=== PATIENT | female | born 1995 | race Caucasian/White ===

== ENCOUNTER 2017-08-23 20:52 | Emergency (ER) | payer OTHER ==
[2017-08-23] MEDS ORDERED: Amoxicillin/Clavulanate TAB* 875 MG PO ONE (21:19)
[2017-08-23] MEDS: Ibuprofen TAB* 400 MG PO ONE ×2 (21:26→21:28)
[2017-08-23 21:34] VITALS: BP 122/68
--- NOTE | 2017-08-23 21:34 | ED ---
Raul Daniel Natalie, scribed for Luis Machado MD on 08/23/17 at 2127 . Throat Pain/Nasal Congestion - HPI Summary HPI Summary: The patient is a 22 y/o F presenting to [facility] c/o pain in left ear starting today [place] The pt states that she jumped and immediately felt a sharp pain in her ear. She thought there was just water in her ear, but it continued to be painful. She also developed a headache. She has recently flown from [place] to [place] to [place] and back to [place] on 08/21/17. Nonsmoker. No medications. No allergies. - History of Current Complaint Chief Complaint: EDEarPain Time Seen by Provider: 08/23/17 21:09 Hx Obtained From: Patient Onset/Duration: Sudden Onset, Still Present Severity: Mild Cough: None - Allergies/Home Medications Allergies/Adverse Reactions: Allergies Allergy/AdvReac Type Severity Reaction Status Date / Time No Known Allergies Allergy Verified 08/23/17 20:55 PMH/Surg Hx/FS Hx/Imm Hx Endocrine/Hematology History: Denies: Hx Diabetes Cardiovascular History: Denies: Hx Congenital Heart Disease, Hx Hypertension Respiratory History: Denies: Hx Asthma Sensory History: Denies: Hx Legally Blind Opthamlomology History: Denies: Hx Legally Blind EENT History: Denies: Hx Deafness Infectious Disease History: No Infectious Disease History: Denies: Traveled Outside the in Last 30 Days - Family History Known Family History: Negative: Blood Disorder Review of Systems Positive: Ear Ache - sharp pain left ear Positive: Headache All Other Systems Reviewed And Are Negative: Yes Physical Exam - Summary Physical Exam Summary: Appearance: Well appearing, no pain distress Skin: warm, dry, reflects adequate perfusion Head/face: normal Eyes: EOMI, CLARENCE ENT: tiny eccymosis in interior of TM with bubbles Neck: supple, non-tender Respiratory: CTA, breath sounds present Cardiovascular: RRR, pulses symmetrical Abdomen: non-tender, soft Bowel Sounds: present Musculoskeletal: normal, strength/ROM intact Neuro: normal, sensory motor intact, A&Ox3 Triage Information Reviewed: Yes Vital Signs On Initial Exam: Initial Vitals Temp Pulse Resp BP Pulse Ox 98.4 F 93 16 121/75 98 08/23/17 20:55 08/23/17 20:55 08/23/17 20:55 08/23/17 20:55 08/23/17 20:55 Vital Signs Reviewed: Yes Diagnostics - Vital Signs Vital Signs Temp Pulse Resp BP Pulse Ox 08/23/17 20:55 98.4 F 93 16 121/75 98 - Laboratory Lab Statement: Any lab studies that have been ordered have been reviewed, and results considered in the medical decision making process. Re-Evaluation - Re-Evaluation First Eval Re-Evaluation Time: 21:20 Change: Improved - I spoke with the pt about exam. She will be discharged home. EENT Course/Dx - Course Course Of Treatment: Likely pressure barotitis versus forcible water entering the eustachian tube. Tiny bubbles seen behind the eardrum without significant erythema. Eardrum is intact. Augmentin, ibuprofen here. Oral Sudafed, Afrin at home plus the antibiotic and ibuprofen. - Diagnoses Provider Diagnoses: Barotitis media Discharge - Sign-Out/Discharge Documenting (check all that apply): Discharge/Admit/Transfer - Pt will be discharged home. - Discharge Plan Condition: Good Disposition: HOME Prescriptions: Amoxicillin/Clavulanate TAB* [Augmentin TAB 875*] 875 mg PO BID #14 tab Patient Education Materials: Barotitis Media (ED) Referrals: [facility] [Provider Group] Additional Instructions: Ibuprofen as needed. Afrin for the next 2 days. Return with fever, uncontrolled pain, worse or other concerns. [facility]up with [facility]. - Billing Disposition and Condition Condition: GOOD Disposition: Home The documentation as recorded by the Raul schultz Natalie accurately reflects the service I personally performed and the decisions made by , Luis Machado MD.
== END 2017-08-23 21:33 | disposition home or self-care (01) ==
LOC: ED 20:52
DX: T70.0XXA Otitic barotrauma, initial encounter (principal); W16.812A Jumping or diving into other water striking water surface causing other injury, initial encounter; Y92.89 Other specified places as the place of occurrence of the external cause
CPT/HCPCS: 99282; A9270-GY

== ENCOUNTER 2017-09-26 14:12 | Emergency (ER) | payer OTHER ==
[2017-09-26 14:22] VITALS: BP 102/54
--- NOTE | 2017-09-26 14:54 | ED ---
Skin Complaint - HPI Summary HPI Summary: This is scradria Phillipsin documenting for attending Dr. Elizabeth Corrales MD. A 22 y/o female presents to [facility] c/o right index finger swelling and redness due to ingrown nail. She reports that her symptoms have been present for the past two weeks, however, she noted that yesterday she woke up with swelling and redness on her right index finger. She noted that there is pain with palpation reaching 4/10 in severity. Pt denies any fever or chills. To alleviate symptoms , the patient put neosporin cream on the area. No known allergies. PMHx of tonsillectomy. - History of Current Complaint Chief Complaint: UCUpperExtremity Time Seen by Provider: 09/26/17 14:46 Stated Complaint: RED SWOLLEN FINGER TIP Hx Obtained From: Patient Hx Last Menstrual Period: 3 wks ago Onset/Duration: Started Days Ago - Yesterday, swelling and redness., Started Weeks Ago - Ingrown nail on right index finger, Still Present Timing: Constant, Lasting Days Onset Severity: Moderate Current Severity: Moderate Pain Intensity: 4 Pain Scale Used: 0-10 Numeric Skin Location: Hand, Other: - Right index finger Character: Swelling, Redness, Painful - 4/10 Aggravating Symptom(s): Nothing Alleviating Symptom(s): OTC Meds - Neosporin. Associated Signs & Symptoms: Negative - Allergy/Home Medications Allergies/Adverse Reactions: Allergies Allergy/AdvReac Type Severity Reaction Status Date / Time No Known Allergies Allergy Verified 09/26/17 14:22 PMH/Surg Hx/FS Hx/Imm Hx Cardiovascular History: Denies: Hx Congenital Heart Disease, Hx Hypertension Respiratory History: Denies: Hx Asthma Sensory History: Denies: Hx Legally Blind, Hx Deafness Opthamlomology History: Denies: Hx Legally Blind Infectious Disease History: No Infectious Disease History: Denies: Traveled Outside the [place] in Last 30 Days - Family History Known Family History: Negative: Blood Disorder - Social History Alcohol Use: Occasionally Substance Use Type: Reports: None Smoking Status (MU): Never Smoked Tobacco Review of Systems Constitutional: Negative Negative: Fever, Chills Eyes: Negative ENT: Negative Cardiovascular: Negative Respiratory: Negative Gastrointestinal: Negative Genitourinary: Negative Positive: Edema - right index finger Positive: Other - POSITIVE: Swelling and redness on right index finger Neurological: Negative Psychological: Normal All Other Systems Reviewed And Are Negative: Yes Physical Exam - Summary Physical Exam Summary: Appearance: Well-Appearing, No Pain Distress, Well-Nourished Eyes: conjunctiva clear, no discharge ENT: Hearing grossly normal, no muffled/hoarse voice. Neck: Normal, Supple Respiratory/Lung Sounds: Lungs clear, Normal breath sounds, No respiratory distress, No accessory muscle use Cardiovascular: RRR, No murmur Abdomen: Nontender, Soft, no guarding, not distended Bowel Sounds: Present Musculoskeletal: Normal Neurological: Alert, muscle tone normal Psychiatric:Normal, age appropriate behavior Skin: Redness and swelling of right index finger - medial aspect of nail. No fluctuant abscess, small puntum area with oozing clear drainage. No pus drainage. Triage Information Reviewed: Yes Vital Signs On Initial Exam: Initial Vitals Temp Pulse Resp BP Pulse Ox 98.7 F 72 18 102/54 99 09/26/17 14:18 09/26/17 14:18 09/26/17 14:18 09/26/17 14:18 09/26/17 14:18 Vital Signs Reviewed: Yes Appearance: Positive: Well-Appearing, No Pain Distress Diagnostics - Vital Signs Vital Signs Temp Pulse Resp BP Pulse Ox 09/26/17 14:18 98.7 F 72 18 102/54 99 - Laboratory Lab Statement: Any lab studies that have been ordered have been reviewed, and results considered in the medical decision making process. Course/Dx - Course Course Of Treatment: A 22 y/o female presents to ED c/o right index finger swelling and redness due to ingrown nail. According to the patient, the ingrown nail has been presents for the past two weeks, however, she noted that yesterday she woke up with swelling and redness on her right index finger. She noted that there is pain with palpation reaching 4/10 in severity. Pt denies any fever or chills. No laboratory scans were done. In the ED course, we reviewed her ongoing symptoms, Patient will be discharged with a diagnosis of paronychia. Patient is to start taking prescribed medication as prescribed. Additionally, patient is to apply topical antibiotic, however kept the finger dry. Patient is to follow up with PCP in 1 week. Pt is agreeable with this plan. - Diagnoses Provider Diagnoses: Paronychia Discharge - Sign-Out/Discharge Documenting (check all that apply): Patient Departure - DISCHARGE - Discharge Plan Condition: Stable Disposition: HOME Prescriptions: Cephalexin CAP* [Keflex CAP*] 500 mg PO TID 10 Days #30 cap Patient Education Materials: Paronychia (ED) Referrals: No Primary Care Phys,[facility] [Primary Care Provider] - Additional Instructions: Please start taking the medication as prescribed to the pharmacy . You can apply the topical antibiotic as well. Please keep the finger dry. Follow up with your primary care doctor in 1 week. Return to Urgent care / ER if symptoms get worse. - Billing Disposition and Condition Condition: STABLE Disposition: Home
== END 2017-09-26 15:04 | disposition home or self-care (01) ==
LOC: UCEAST 14:12
DX: L03.011 Cellulitis of right finger (principal)
CPT/HCPCS: 99212; G0463

== ENCOUNTER 2018-10-23 04:34 | Inpatient (IN) | payer OTHER ==
--- NOTE | 2018-10-23 04:59 | ED ---
Psychiatric Complaint - HPI Summary HPI Summary: LEVEL 5 CAVEAT secondary to being uncooperative. The patient is a 23 y/o F brought in by police to [facility] with a chief complaint of SI with plan for overdose. She states she used razors from her shower to self -inflict lacerations on the bilateral wrists. She also states that she tried to overdose but was unsuccessful. No PMHx. Nonsmoker, occasional EtOH, questionable substance use. - History Of Current Complaint Chief Complaint: EDMentalHealth Time Seen by Provider: 10/23/18 04:43 Hx Obtained From: Patient - patient doesn't give full history (uncooperative), Other: - police Hx From Patient Unobtainable Due To: Other - LEVEL 5 CAVEAT secondary to pt being uncooperative Hx Last Menstrual Period: 3 wks ago Onset/Duration: Still Present Severity Currently: Severe Has Suicidal: Reports: Thoughts, With A Plan - overdose - Allergies/Home Medications Allergies/Adverse Reactions: Allergies Allergy/AdvReac Type Severity Reaction Status Date / Time No Known Allergies Allergy Verified 10/23/18 08:46 PMH/Surg Hx/FS Hx/Imm Hx Endocrine/Hematology History: Denies: Hx Diabetes Cardiovascular History: Denies: Hx Congenital Heart Disease, Hx Hypertension Respiratory History: Denies: Hx Asthma Sensory History: Denies: Hx Legally Blind, Hx Deafness Opthamlomology History: Denies: Hx Legally Blind - Surgical History Surgical History: None Surgery Procedure, Year, and Place: none Infectious Disease History: No Infectious Disease History: Denies: Traveled Outside the US in Last 30 Days - Family History Known Family History: Negative: Blood Disorder - Social History Alcohol Use: Occasionally Substance Use Type: Reports: None Hx Tobacco Use: No Smoking Status (MU): Never Smoked Tobacco Review of Systems Positive: Other - lacerations on bilateral wrists Psychological: Other - SI with plan of overdose All Other Systems Reviewed And Are Negative: No - Comments Additional Review of Systems Comments: LEVEL 5 CAVEAT secondary to being uncooperative Physical Exam - Summary Physical Exam Summary: Appearance: Well-appearing, Well-nourished, lying in bed comfortable Skin: Superficial lacerations on the wrists without active bleeding and none of which require closure, Warm, dry, no obvious rash Eyes: sclera anicteric, no conjunctival pallor ENT: mucous membranes moist Neck: deferred Respiratory: No signs of respiratory distress Cardiovascular: Appears well perfused, pulses are nml Abdomen: deferred Musculoskeletal: Moving all 4 extremities without obvious discomfort Neurological: Awake and alert, mentation is normal, speech is fluent and appropriate Psychiatric: affect is normal, does not appear anxious or depressed Triage Information Reviewed: Yes Vital Signs On Initial Exam: Initial Vitals Temp Pulse Resp BP Pulse Ox 98.2 F 103 20 123/78 96 10/23/18 04:35 10/23/18 04:35 10/23/18 04:35 10/23/18 04:35 10/23/18 04:35 Vital Signs Reviewed: Yes Diagnostics - Vital Signs Vital Signs Temp Pulse Resp BP Pulse Ox 10/23/18 04:35 98.2 F 103 20 123/78 96 - Laboratory Result Diagrams: 10/23/18 05:24 10/23/18 05:24 Lab Statement: Any lab studies that have been ordered have been reviewed, and results considered in the medical decision making process. Re-Evaluation - Re-Evaluation First Eval Re-Evaluation Time: 04:45 Comment: Patient is medically cleared for MHE. Course/Dx - Course Course Of Treatment: LEVEL 5 CAVEAT secondary to being uncooperative. Patient is a 23 y/o F brought in by police with cc of SI with lacerations to both wrists using a razor and stated plane to overdose. Upon physical exam, the patient exhibits superficial lacerations on the wrists without active bleeding and none of which require closure. Blood work within normal limits. Toxicology report reveals serum alcohol of 145 but is otherwise negative. Patient is medically clear at 0445. The patient is a sign-out from Dr. Anibal Barboza MD, to Dr. Marie Arteaga MD, at change of shift at 0700 on 10/23/2018, pending MHE and disposition. - Differential Dx/Clinical Impression Provider Diagnosis: Suicidal ideation, Alcohol intoxication, Depressed, Self-cutting of wrist Discharge ED - Sign-Out/Discharge Documenting (check all that apply): Sign-Out Patient Signing out patient TO: Marie Arteaga - Patient is a sign-out to Dr. Marie Arteaga MD, at change of shift at 0700 on 10/23/2018, pending MHE and disposition. Patient Received Moderate/Deep Sedation with Procedure: No - Discharge Plan Condition: Stable Disposition: ADMITTED TO [facility] - Billing Disposition and Condition Condition: STABLE Disposition: Admitted to [facility] - Attestation Statements Document Initiated by Alberto: Yes Documenting Venkataibdariana: Sho Carter Provider For Whom Alberto is Documenting (Include Credential): Dr. Anibal Barboza MD Scribe Attestation: Sho Daniel scribed for Dr. Anibal Barboza MD on 10/23/18 at 2021. Scribe Documentation Reviewed: Yes Provider Attestation: The documentation as recorded by the Sho schultz accurately reflects the service I personally performed and the decisions made by me, Dr. Anibal Barboza MD Status of Scradria Document: Viewed
[2018-10-23 05:39] LABS: ABS Lymphocytes 2.7 10^3/ul (1.0-4.8); ABS Monocytes 0.4 10^3/ul (0-0.8); ABS Neutrophils 6.8 10^3/ul (1.5-7.7); Eosinophil % 0.4 %; Hematocrit 39 % (35-47); Hemoglobin 13.7 g/dL (12.0-16.0); Lymphocyte % 26.8 %; Mean Corpuscular HGB Conc 35 g/dL (31-36); Mean Corpuscular Hemoglobin 32 pg (27-31); Mean Corpuscular Volume 92 fL (80-97); Mean Platelet Volume 7.3 fL (7.4-10.4); Platelet Count 396 10^3/uL (150-450); Red Blood Count 4.27 10^6 /uL (3.70-4.87); Red Cell Distribution Width 13 % (10-15); White Blood Count 9.9 10^3/uL (3.5-10.8)
[2018-10-23 05:43] LABS: Urine Appearance Clear; Urine Bilirubin Negative (Negative); Urine Blood Negative (Negative); Urine Color Straw; Urine Glucose Negative (Negative); Urine Ketones Negative (Negative); Urine Nitrite Negative (Negative); Urine Protein Negative (Negative); Urine Specific Gravity 1.003 (1.010-1.030); Urine Urobilinogen Negative (Negative)
[2018-10-23 05:50] LABS: Urine Benzodiazepine Screen None Detected (None Detect); Urine Opiates Screen None Detected (None Detect)
[2018-10-23 05:51] LABS: ALT 23 U/L (7-52); AST 18 U/L (13-39); Albumin 4.8 g/dL (3.2-5.2); Albumin/Globulin Ratio 1.6 (1-3); Alkaline Phosphatase 93 U/L (34-104); Anion Gap 9 mmol/L (2-11); BUN/Creatinine Ratio 9.9 (8-20); Blood Urea Nitrogen 7 mg/dL (6-24); CO2 Carbon Dioxide 24 mmol/L (22-32); Calcium 9.6 mg/dL (8.6-10.3); Chloride 105 mmol/L (101-111); EGFR African American 125.7 (>60); EGFR Non-African American 103.9 (>60); Glucose 106 mg/dL (70-100); Potassium 4.1 mmol/L (3.5-5.0); Sodium 138 mmol/L (135-145); Total Protein 7.8 g/dL (6.4-8.9)
[2018-10-23 05:58] LABS: HCG Pregnancy < 0.60 mIU/mL
[2018-10-23 06:38] LABS: Acetaminophen < 15 mcg/mL; Alcohol 145 mg/dL (<10); Salicylate < 2.50 mg/dL (<30)
--- NOTE | 2018-10-23 07:08 | ED ---
Progress - Progress Note Progress Note: Pt is a sign out from Dr. Barboza at the 0700 shift change on 10/23/2018, pending MHE and disposition. The pt is awake now and states that she was "not doing well" when she first came to the ED. She was having SI without a plan last night and her friend, Sho, called the police to bring her to the ED. She mentions that she had been cutting her bilateral wrists. She also reports currently having a headache and that her cut lopez feel like they are burning. She notes that she consumes alcohol several times per week and was drinking [employer]. She has been hospitalized for psychiatric reasons before in [place], [place]. Her parents are currently going through divorce. Her LNMP was in July and she has no known allergies. She has FHx of bipolar disorder. Dr. Lewis was consulted @1250 and advises [place] [facility] Final Dx are alcohol intoxication, self-cutting of wrists, suicidal ideation, and unspecified depression. The pt will be admitted involuntarily to [facility] Appearance: Ill-appearing, moderate pain distress due to headache, well- nourished Skin: Warm, color reflects adequate perfusion, dry, 3 superficial lacerations on distal ventral surface of right forearm, 2 superficial lacerations on distal ventral surface of left forearm, superficial abrasion on medial lower right leg. Head: Normal Head/Face inspection, atraumatic Eyes: Conjunctiva clear ENT: Normal inspection Neck: Supple, no nodes, no JVD Respiratory: Lungs clear, normal breath sounds, no respiratory distress Cardio: RRR, No murmur, pulses normal, brisk capillary refill Abdomen: Soft, nontender Bowel sounds: Present Musculoskeletal: Strength Intact/ROM intact, no calf tenderness, no edema. Psychological: depressed affect, avoids eye contact Neuro: Alert, muscle tone normal, no focal deficit Re-Evaluation - Re-Evaluation First Eval Re-Evaluation Time: 04:45 Comment: Patient is medically cleared for MHE. Second Eval Re-Evaluation Time: 12:50 Comment: Signed involuntary paperwork for pt. Third Eval Re-Evaluation Time: 12:55 Comment: Pt is nauseous and holding vomit back. Will give Zofran. Course/Dx - Course Course Of Treatment: LEVEL 5 CAVEAT secondary to being uncooperative. Patient is a 23 y/o F brought in by police with cc of SI with lacerations to both wrists using a razor and stated plane to overdose. Upon physical exam, the patient exhibits superficial lacerations on the wrists without active bleeding and none of which require closure. Blood work within normal limits. Toxicology report reveals serum alcohol of 145 but is otherwise negative. Patient is medically clear at 0445. The patient is a sign-out from Dr. Anibal Barboza MD, to Dr. Marie Arteaga MD, at change of shift at 0700 on 10/23/2018, pending MHE and disposition. Pt is a sign out from Dr. Barboza at the 0700 shift change on 10/23/2018, pending MHE and disposition. Dr. Lewis was consulted @1250 and advises involuntary admission [place] [facility] Final Dx are alcohol intoxication, self- cutting of wrists, suicidal ideation, and unspecified depression. The pt will be admitted involuntarily to [facility] - Diagnoses Provider Diagnoses: Suicidal ideation, Alcohol intoxication, Depressed, Self-cutting of wrist - Provider Notifications Discussed Care Of Patient With: Ashleigh Lewis - Dr. Lewis advises involuntary admission to [facility] Time Discussed With Above Provider: 12:50 Instructed by Provider To: Admit As Inpatient Discharge ED - Sign-Out/Discharge Documenting (check all that apply): Patient Departure - admit, Receiving Sign- Out - Pt is a sign out from Dr. Barboza at the 0700 shift change on 10/23/2018, pending MHE and disposition. Receiving patient FROM: Anibal Barboza Patient Received Moderate/Deep Sedation with Procedure: No - Discharge Plan Condition: Improved Disposition[place] [place] Billing Disposition and Condition Condition: IMPROVED Disposition: Psychiatric Facility [facility] [place] Attestation Statements Document Initiated by Scribe: Yes Documenting Scribe: Shaheen Childers Provider For Whom Venkataibdariana is Documenting (Include Credential): Marie Arteaga MD Scribe Attestation: Shaheen Daniel, scribed for Marie Arteaga MD on 12/06/18 at 0246. Scribe Documentation Reviewed: Yes Provider Attestation: The documentation as recorded by the Shaheen schultz accurately reflects the service I personally performed and the decisions made by me, Marie Arteaga MD Status of Scribe Document: Viewed
[2018-10-23] MEDS ORDERED: Acetaminophen TAB* 325 MG PO ONE (11:54)
[2018-10-23] MEDS ORDERED: Ondansetron ODT TAB* 4 MG PO ONE (12:55)
[2018-10-23] MEDS ORDERED: hydrOXYzine HCL TAB* 50 MG PO ONE (14:30)
[2018-10-23] MEDS ORDERED: Al Hydrox/Mg Hydrox/Simet LIQ* 30 ML UDC PO PRN (17:40)
[2018-10-23] MEDS ORDERED: LORazepam PO (enter doses in WAM protocol) PO SCH (19:00)
[2018-10-24 08:29] LABS: HDL Cholesterol 64.1 mg/dL
[2018-10-24] MEDS: Vitamin THERAPEUTIC TAB PO SCH (09:54)
--- NOTE | 2018-10-24 16:09 | HP ---
HISTORY AND PHYSICAL: DATE OF ADMISSION: IDENTIFYING DATA: Gayle is a 23-year-old female who is a [employer] student, was brought to the emergency room by [place] Police following a suicide attempt when she was intoxicated. This is her second lifetime psychiatric hospitalization. CHIEF COMPLAINT: "I don't see any purpose of living any longer." HISTORY OF PRESENT ILLNESS: Gayle was with her friend and has been drinking night before last night. She reports that she drank more than she usually does and decided to commit suicide. She has been severely depressed and suicidal for last few days. Her depression started during her seventh grade years and has never been adequately treated. Gayle reports that in the recent past she has been terribly sad, cries frequently, has not been enjoying anything including her relationship with her boyfriend of almost a year. She reports that her self-esteem and self- worth does not exist and all she can think of is ending her life. She struggled with it for some time before she attempted to do it by cutting her wrist and overdosing on ibuprofen. Luckily, her friend was around who prevented her from taking the overdose and cutting her worse than what she has already done and she called police, who brought her to the emergency room. Gayle denies any psychotic symptoms or manic/hypomanic symptoms. She has couple of severe stressors. One of them is recent breakup with her boyfriend whom she loved a lot. Her boyfriend all of a sudden told her that he does not love her anymore and that was surprising to her. She has been dealing with the divorce of her parents, who she thought would be better because in her opinion her dad is an "Ass Hole" He is very abusive towards his family members. PAST PSYCHIATRIC HISTORY: As reported by Gayle, she had 1 prior hospitalization at age 19 in [place] under identical circumstances of severe depression. She has been seeing a psychiatrist in [place] as well as here. She was prescribed Vyvanse as well as Zoloft, which she has not been compliant. SUBSTANCE ABUSE HISTORY: Gayle reports that she has been drinking 2 to 3 days out of a week somewhere between couple to 4 drinks daily also during the weekend. She does not remember drinking as much as she did prior to coming to the hospital this weekend. PAST MEDICAL HISTORY: Unremarkable. ALLERGIES: No known drug allergies. FAMILY PSYCHIATRIC HISTORY: Remarkable for her younger brother, who is 19, also suffers from depression. 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 She reports that her grades are failing and she had to take a semester off for that reason. In her opinion, nothing is going right in her life. She is from [place], [place], from an affluent family; however, her parents are about to be because of her father's abusive behavior towards the family. She has 5 other siblings, 2 sisters and 3 brothers. She is the oldest of all. She has been sexually active with her boyfriend. PHYSICAL EXAMINATION GENERAL: Gayle is a tall, well-built, blonde-haired female who is appropriately dressed and neatly groomed. She does not appear to be in any physical distress. VITAL SIGNS: Show a blood pressure of 123/78, pulse rate of 103, respirations 20, pulse ox 96% on room air. HEENT: Her head is atraumatic, normocephalic. Eyes: PERRLA. EOMI x2. Anicteric sclerae. ENT: Moist mucous membranes in oral cavity and oral hygiene is good. NECK: Supple with midline trachea. No adenopathy or thyromegaly. RESPIRATORY: Equal entry of air bilaterally. No wheezing or crepitations. CARDIOVASCULAR: Normal heart sounds with S1 and S2 only. No murmurs or gallops. ABDOMEN: Soft, nontender without evidence of any organomegaly. Bowel sounds positive in all quadrants. MUSCULOSKELETAL: Well formed and without any deformities or difficulty of movements. NEUROLOGICAL: She is alert and oriented to time, place, and person. Cranial nerves II through XII are grossly intact. No evidence of sensory deficits. LABORATORY DATA: Labs done in the emergency room were unremarkable with a WBC count of 9.9, hemoglobin 13.7, hematocrit 39, platelet count 396. Serum sodium 138, potassium 4.1, chloride 105, carbon dioxide 24, BUN 7, creatinine 0.71. Serum alcohol level was 145 when she arrived in the emergency room. Rest of the lab work was all unremarkable. MENTAL STATUS EXAMINATION: Gayle is alert and oriented to time, place, and person. Her speech is soft and low volume; however, it is logical and goal directed. She makes poor eye contact. Describes her mood as depressed. Observed affect is sad and tearful. Her intelligence appears to be average as evidenced by her educational background, vocabulary, and fund of knowledge. Memory functions are intact in all spheres. There is no evidence of any thought or perceptual disturbances. Denies current suicidal thoughts or plans. Also denies any homicidal thoughts. Her insight and judgment appear to be poor. SUMMARY: This is a 23-year-old [employer] radha who has history of mental illness with a diagnosis of attention deficit disorder and depression since she was a seventh grader. She was hospitalized at age 17 because of suicide attempt in the context of severe depression. DIAGNOSTIC IMPRESSION: Mental health diagnoses: 1. Major depressive disorder, recurrent, severe, without psychotic features. 2. Rule out attention deficit disorder. Physical health diagnosis: Status post self-mutilation on both wrists. TREATMENT RECOMMENDATIONS: Gayle will remain hospitalized on behavioral science unit for her safety, diagnostic clarification, and stabilization of severe depression. Her code status will remain full. While on the unit, supportive milieu, individual and group therapy will be initiated, and she will be encouraged to participate in all. Psychopharmacological treatment was discussed in detail with its risks, benefits, and alternatives to different meds and she is willing to restart Zoloft on a higher dose. Rest of the psychopharmacological management will be deferred to her assigned psychiatrist on the unit. [id number]/[facility] #: [id number] SHERWIN
[2018-10-24] MEDS: Sertraline* 100 MG TAB PO SCH (16:12)
[2018-10-25] MEDS: Vitamin THERAPEUTIC TAB PO SCH (08:17)
[2018-10-25] MEDS: Sertraline* 100 MG TAB PO SCH (08:17)
--- NOTE | 2018-10-25 17:27 | PN ---
Subjective - Subjective Date of Service: 10/25/18 Service Type: 40583 Hosp care 25 min moderate complexity Subjective: 23 y/o WF with h/o depression since her 7th grade has been severely depressed and attempted suicide by slashing her wrists and failed OD. Was intoxicated on presentation to the ED. Has been drinking 2-3 time per week. Doing poorly at school with poor grades and poor inter personal relationship with dad. Boyfriend left her abruptly and she wasn't taking her meds. Objective - General Observations Appearance: Well Groomed Appears Stated Age: Yes Stature: Tall Posture: WNL Eye Contact: Intermittent Behavior/Activity: WNL - Interaction Observations Attitude Towards Examiner: Cooperative Stated Mood: Dysphoric, Anxious Affect: Restricted Speech Pattern/Tone: Clear, Appropriate, Normal Volume Thought Process: Coherent, Goal Directed Perception: WNL Thought Content: Depressive Thought Process: Lethality: Passive Wish Hallucination Type: Denies Delusion Type: Denies - Cognitive Function Orientation: A&O x 4 Level of Consciousness: Awake, Alert, Appropriate Cognition: WNL Estimated Intelligence: Normal Insight: Mostly Blames Others for Problems Judgment Within Normal Limits: No - Medication Compliance Cooperative with Inpatient Medication Regimen: Yes - Group Participation Participates in Group Activities: Partial Assessment - Assessment Merits Inpatient Hospitalization: For Immediate Safety, For Stabilization, Pending Safe DC Plan Plan - Plan Treatment Plan: Name: CHARLES HERRERA Birthdate: 1995 [id number] Continued Medication Management: Continue Outpt Medication Medications: Current Medications Acetaminophen (Tylenol Tab*) 650 mg PO Q4H PRN PRN Reason: PAIN or TEMP > 101 F Al Hydrox/Mg Hydrox/Simethicone (Maalox Plus*) 30 ml PO Q4H PRN PRN Reason: INDIGESTION Lorazepam (Ativan Tab(*)) 0 - 6 mg PO .PER [place] PARAMETERS [facility]; Protocol Multivitamins (Theragran Tab*) 1 tab PO DAILY [facility] Last Admin: 10/25/18 08:17 Dose: 1 tab Sertraline HCl (Zoloft*) 100 mg PO DAILY [facility] Last Admin: 10/25/18 08:17 Dose: 100 mg - Discharge Plan Discharge Plan: Outpatient Follow Up Outpatient Program: Counseling/Psych Services at [facility]
[2018-10-25] MEDS: Acetaminophen TAB* 325 MG PO PRN (20:37)
[2018-10-26] MEDS: Sertraline* 100 MG TAB PO SCH (08:41)
[2018-10-26] MEDS: Vitamin THERAPEUTIC TAB PO SCH (08:41)
[2018-10-26] MEDS ORDERED: cloNIDine TAB* 0.1 MG PO PRN (11:37)
[2018-10-26] MEDS: Acetaminophen TAB* 325 MG PO PRN (11:41)
--- NOTE | 2018-10-26 11:42 | PN ---
Subjective - Subjective Date of Service: 10/26/18 Service Type: 69152 Hosp care 25 min moderate complexity Subjective: Patient is lying down on bed upon approach, easy to rouse. She has been seclusive and avoidant of programming. Patient endorses on/off relationship with boyfriend since spring. She states she was hopeful for a reunification but that he is not interested in being a relationship. She endorses panic attacks, new onset in the last year and likely related to the above relationship. She reports being prescribed lorazepam in an ED close to her home. She states she is hoping to return home to [place] then pursue indirect sales exec treatment for depression and anxiety. She denies side effects from increase in sertraline, other than headache. Net Developer Architect phoned patient's mother, Zohreh Herrera and discussed presentation and answered questions. Zohreh reports she will be traveling back to [place] and can be here as soon as . She requests that Charles be discharged while she is in town. Zohreh inquired about referrals for continuing intensive programs and was encouraged to contact their insurance company to identify in-network options. Objective - General Observations Appearance: Unkempt Stature: WNL Posture: Slumped Eye Contact: Average Behavior/Activity: Slowed - Interaction Observations Attitude Towards Examiner: Cooperative Stated Mood: Dysphoric Affect: Blunted Speech Pattern/Tone: Clear, Quiet Volume Thought Process: Coherent, Impoverished Perception: WNL Thought Content: Depressive Thought Process: Lethality: Passive Wish Hallucination Type: None Delusion Type: None - Cognitive Function Orientation: A&O x 4 Level of Consciousness: Alert Cognition: Impaired Attention/Concentration Estimated Intelligence: Normal Insight: WNL Judgment Within Normal Limits: No Ability to Make Reasonable Decisions: Moderately Impaired - Medication Compliance Cooperative with Inpatient Medication Regimen: Yes - Group Participation Participates in Group Activities: No Assessment - Assessment Merits Inpatient Hospitalization: For Immediate Safety, For Stabilization Inpatient DSM-V Dx: F33.2 Clinical Impression: 23yo white female with h/o depression since 7th grade who attempted suicide by cutting her wrist and attempted to find pills to overdose. She merits hospitalization for immediate safety and stabilization. Plan - Plan Treatment Plan: Name: CHARLES HERRERA Birthdate: 1995 [id number] continue acute intensive psychiatric treatment. may decrease to q30min and allow staff pass and computer use per RN discretion. add clonidine 0.1mg BID prn anxiety, continue sertraline. DC [facility] protocol. discharge to include patient's mother Continued Medication Management: Start Medication Medications: Current Medications Acetaminophen (Tylenol Tab*) 650 mg PO Q4H PRN PRN Reason: PAIN or TEMP > 101 F Last Admin: 10/25/18 20:37 Dose: 650 mg Al Hydrox/Mg Hydrox/Simethicone (Maalox Plus*) 30 ml PO Q4H PRN PRN Reason: INDIGESTION Lorazepam (Ativan Tab(*)) 0 - 6 mg PO .PER [facility] PARAMETERS [facility]; Protocol Multivitamins (Theragran Tab*) 1 tab PO DAILY [facility] Last Admin: 10/26/18 08:41 Dose: Not Given Sertraline HCl (Zoloft*) 100 mg PO DAILY [facility] Last Admin: 10/26/18 08:41 Dose: 100 mg - Discharge Plan Discharge Plan: Inpatient Hospitalization
[2018-10-27] MEDS: Vitamin THERAPEUTIC TAB PO SCH (08:31)
[2018-10-27] MEDS: Sertraline* 100 MG TAB PO SCH (08:32)
--- NOTE | 2018-10-27 14:11 | PN ---
Subjective - Subjective Date of Service: 10/27/18 Service Type: 68100 Hosp care 25 min moderate complexity Subjective: Patient is beginning to participate moreso in programming. She is irritable and inquires about a why a peer being able to discharge today and she isn't. Patient informed of efforts made thus far and need for continued correspondence. She gives permission for me to contact her current psychiatrist, Dr Dionte Fine at [phone]. Message left. Objective - General Observations Appearance: Well Groomed Stature: WNL Posture: WNL Eye Contact: Avoidant - Interaction Observations Attitude Towards Examiner: Defensive, Dismissive Stated Mood: Irritable Affect: Restricted Speech Pattern/Tone: Appropriate, Quiet Volume Thought Process: Circumstantial Perception: WNL Thought Content: WNL Hallucination Type: None Delusion Type: None - Cognitive Function Orientation: A&O x 4 Level of Consciousness: Alert Cognition: WNL Estimated Intelligence: Normal Insight: Mostly Blames Others for Problems Judgment Within Normal Limits: No Ability to Make Reasonable Decisions: Mildly Impaired - Medication Compliance Cooperative with Inpatient Medication Regimen: Yes - Group Participation Participates in Group Activities: Partial Assessment - Assessment Merits Inpatient Hospitalization: For Immediate Safety, For Stabilization Inpatient DSM-V Dx: F33.2 Clinical Impression: 23yo white female with h/o depression since 7th grade who attempted suicide by cutting her wrist and attempted to find pills to overdose. She merits hospitalization for immediate safety and stabilization. Plan - Plan Treatment Plan: Name: CHARLES HERRERA Birthdate: 1995 [id number] continue acute intensive psychiatric treatment. may decrease to q30min and allow staff pass and computer use per RN discretion. continue clonidine 0.1mg BID prn anxiety and sertraline. discharge to patient's mother, tentative 10/28/18 Continued Medication Management: Start Medication Medications: Current Medications Acetaminophen (Tylenol Tab*) 650 mg PO Q4H PRN PRN Reason: PAIN or TEMP > 101 F Last Admin: 10/26/18 11:41 Dose: 650 mg Al Hydrox/Mg Hydrox/Simethicone (Maalox Plus*) 30 ml PO Q4H PRN PRN Reason: INDIGESTION Clonidine HCl (Catapres Tab*) 0.1 mg PO BID PRN PRN Reason: ANXIETY Multivitamins (Theragran Tab*) 1 tab PO DAILY [facility] Last Admin: 10/27/18 08:31 Dose: 1 tab Sertraline HCl (Zoloft*) 100 mg PO DAILY [facility] Last Admin: 10/27/18 08:32 Dose: 100 mg - Discharge Plan Discharge Plan: Inpatient Hospitalization
--- NOTE | 2018-10-28 08:48 | DCNOTE ---
Subjective - Subjective Service Types: 47060 Hosp DC Day Mgmt simple under 30 min Discharge Date: 10/28/18 Subjective: Patient working on [place] in milieu during community meeting; cooperative with meeting in semi-private location of unit. She reports "ok" mood and is looking forward to discharge. She reports utilizing clonidine yesterday with good effect. We discuss the risks of benzodiazepine use and patient is agreeable to utilize clonidine instead. Patient education done regarding alcohol and depression; to which she was receptive and stated understanding. She denies SI or passive wish. Objective - General Observations Appearance: Well Groomed Stature: WNL Posture: WNL Eye Contact: Average Behavior/Activity: WNL - Interaction Observations Attitude Towards Examiner: Cooperative Stated Mood: Euthymic Affect: Full Speech Pattern/Tone: Clear, Appropriate, Normal Volume Thought Process: Coherent, Goal Directed Perception: WNL Thought Content: WNL Hallucination Type: None Delusion Type: None - Cognitive Function Orientation: A&O x 4 Level of Consciousness: Alert Cognition: WNL Estimated Intelligence: Normal Insight: WNL Judgment Within Normal Limits: Yes - Medication Compliance Cooperative with Inpatient Medication Regimen: Yes - Group Participation Participates in Group Activities: Partial DC Assessment - Assessment Clinical Impression: 23yo white female with h/o depression since 7th grade who attempted suicide by cutting her wrist and attempted to find pills to overdose. She has tolerated medication changes and stabilized in this setting. She denies thoughts of harm to self and advocates for discharge. Merits Inpatient Hospitalization: No Clear for Discharge: Adequate Clinical Respons, Acceptable Safety Profile Inpatient DSM-V Dx: F33.2 Discharge Planning - Discharge Planning Discharge Plan: Outpatient Follow Up Recommendations for Continuing Care: Medication Management, Psychotherapy, Substance Abuse Counseling, Primary Care Followup Medications: Current Medications Clonidine HCl (Catapres Tab*) 0.1 mg PO daily PRN PRN Reason: ANXIETY Last Admin: 10/27/18 15:51 Dose: 0.1 mg Sertraline HCl (Zoloft*) 100 mg PO DAILY [facility] Last Admin: 10/27/18 08:32 Dose: 100 mg may continue Vyvanse per outpatient psychiatrist Discharge Planning: Prescriptions provided for discharge [x] Yes [] No Follow up care details as per social work arrangements: [facility] Intensive Out[facility] Dr Dionte Fine, psychiatrist Patient response to discharge plan: [x] eager for discharge [x] agreeable with discharge plan [] ambivalent about discharge [] disagrees with discharge today
[2018-10-28 09:01] VITALS: BP 115/56
[2018-10-28] MEDS: Sertraline* 100 MG TAB PO SCH (09:46)
[2018-10-28] MEDS: Vitamin THERAPEUTIC TAB PO SCH (09:46)
--- NOTE | 2018-10-28 14:45 | DS ---
CC: Dr. Dionte Fine, [place], [place]; [facility] Intensive Outpatient Program* DISCHARGE SUMMARY: DATE OF ADMISSION: 10/23/18 DATE OF DISCHARGE: 10/28/18 SUPERVISING PSYCHIATRIST: Dr. Jey Raymond* (dictated by ALEAH Lorenzo) . DISCHARGE DIAGNOSES: 1. Major depressive disorder, recurrent, moderate, with anxious distress. 2. Alcohol abuse. CONDITION AT THE TIME OF DISCHARGE: Improved. The patient has been denying suicidal ideation throughout her stay here. She tolerated medication changes including increasing sertraline and has trialed clonidine p.r.n. for anxiety with good effect. She reports her mood is okay and she is looking forward to discharge. She agrees with plan to return home to [place] with her mother, who is en route to pick her up. Social Work has secured an intake at an intensive outpatient program in [place] where the patient resides. She has been safe on all checks. She has been advocating for discharge. We discussed means restriction, safety planning to which she was receptive and stated understanding. We also discussed risks of alcohol and depression and separately benzodiazepine use. The patient was receptive and stated understanding of this information as well. She was pleasant and cooperative at the time of discharge. The patient is discharged to home. MENTAL STATUS EXAM: The patient is well groomed, casually dressed in her own clothing. Her ADLs are completed. She is wearing her hair up in a bun. She is pleasant and cooperative with relaxed posture. She has good eye contact. She is alert and oriented x3. Her speech is soft, articulate, and spontaneous. Concentration good. Memory 3/3. Thought content is negative for suicidal ideation, HI, or . She denies urges to harm herself. Thought process is logical, coherent, and goal directed. Insight and judgment are fair, improved. Fund of knowledge is excellent and estimated intelligence is average. INSTRUCTIONS GIVEN TO THE PATIENT: A. Medications: 1. Sertraline 100 mg p.o. daily. 2. Clonidine 0.1 mg p.o. daily p.r.n. The above were prescribed to [facility]. The patient may continue Vyvanse per her outpatient psychiatrist. B. Diet: Regular. C. Activity: As tolerated. Tobacco cessation is not applicable. There are no pending labs or diagnostic studies. D. Followup care: The patient was referred back to [facility] for intensive outpatient program. She was also given information about other programs in the [place] area and how to contact them. The patient was referred back to psychiatrist, Dr. Dionte Fine, in [place], [place]. E. Substance use followup: The patient declined need for substance use treatment. HOSPITAL COURSE: Part A. Reason for admission: The patient presented to the emergency department via [place] Police following a suicide attempt when she was intoxicated. HPI: Gayle was with her friend and had been drinking the night before presentation. She reports she drank more than usual and decided to commit suicide. She has been severely depressed and suicidal for the last few days. The patient reports depressive symptoms started during 7th grade. She reports she has been terribly sad, cries frequently in the recent past. She endorses anhedonia. She reports her self-esteem and self-worth does not exist and all she can think of is ending her life. She struggled with it for some time before she attempted to do it by cutting her wrist and overdosing on ibuprofen. Luckily, her friend was around who prevented her from taking the overdose and cutting worse than she had already done. Her friend called the police, who brought her to the emergency room. Gayle denies any psychotic symptoms or manic or hypomanic symptoms. She has a couple of severe stressors. One of them is a recent breakup with her boyfriend whom she loved a lot. Her boyfriend all of a sudden told her that he does not love her anymore and that was surprising to her. She has been dealing with the divorce of her parents, who she thought would be better in her opinion because her dad is an "a--h--e" and is abusive towards family members. Part B. Psychiatric treatment rendered: The patient was admitted to the adult behavioral services unit on involuntary status. Code status was full. She was placed on 15-minute checks for safety. She was safe on all checks and was decreased to 30-minute observation, allowed staff pass and computer use. She was moderately interactive with programming. She did britton with some same age peers on the unit. She tolerated increase in sertraline without side effects other than headache, which was transient. As stated above, she trialed clonidine for anxiety and reported good effect. Force Variation Equipment Tender suggested use of this medication in place of benzodiazepine and the patient stated understanding. Her mother was involved in treatment and discharge planning. We coordinated via phone and email. Initially, her mother asked about long-term treatment facilities and this resume writer encouraged her to call insurance company and identify facilities that are in network for intensive outpatient treatment. Social Work secured an intake at [facility]. The patient and her mother were also given information about [facility] and [facility] for outpatient services. Mother requested that the patient remain hospitalized until she was able to arrive and assist with discharge. The patient's mother and her brother arrived last evening. They visited and that seemed to go well. This morning, the patient was calm, cooperative and in behavioral control. She was receptive to information in regards to safety planning and means restriction. RIKY SAGASTUME NP [id number]/[facility]PS #: [id number] SHERWIN
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
== END 2018-10-28 11:40 | disposition home or self-care (01) | DRG 885 ==
LOC: ED 04:34 → BSU 16:45
PROVIDERS: ADMIT Psychiatry & Neurology Psychiatry; ATTEND Psychiatry & Neurology Psychiatry
DX: F33.1 Major depressive disorder, recurrent, moderate (principal); S61.512A Laceration without foreign body of left wrist, initial encounter; S61.511A Laceration without foreign body of right wrist, initial encounter; X78.8XXA Intentional self-harm by other sharp object, initial encounter; F10.129 Alcohol abuse with intoxication, unspecified; Y90.6 Blood alcohol level of 120-199 mg/100 ml; F41.9 Anxiety disorder, unspecified; R51 Headache; Z81.8 Family history of other mental and behavioral disorders; Y92.009 Unspecified place in unspecified non-institutional (private) residence as the place of occurrence of the external cause
CPT/HCPCS: 36415; 80053; 80061; 80307; 80320; 80329; 81003; 83036; 84443; 84702; 85025; 99222; 99232; 99238; 99285; A9270-GY; G0480